=== PATIENT | male | born 1935 | race Caucasian/White ===

== ENCOUNTER 2018-12-05 10:04 | Emergency (ER) | payer MEDICARE ==
[~2018-12-05] VITALS: Ht 177.8 cm; Wt 77.1 kg
--- OUTSIDE RECORDS SUMMARY | 2018-12-05 10:06 | XMS REPORT ---
Author Author [facility] Address Unknown Phone Unavailable Care Team Providers Care [employer] Name Role Phone Unavailable Unavailable Payers Payer Name Policy Type Policy Number Effective Date Expiration Date Problems This patient has no known problems. Allergies, Adverse Reactions, Alerts Allergy Name Allergy Type Status Severity Reaction(s) Onset Date Inactive Date Treating Clinician Comments Penicillins DA Active U 2018-04-23 00:00:00 meperidine DA Active U 2018-04-23 00:00:00 Medications This patient has no known medications.
[2018-12-05 10:48] LABS: CLARITY,URINE CLEAR (CLEAR); COLOR,URINE AMBER (YELLOW); LEUKOCYTE ESTERASE ,URINE NEGATIVE (NEGATIVE); NITRITE,URINE NEGATIVE (NEGATIVE)
[2018-12-05 10:49] LABS: BILIRUBIN,URINE 1+ (NEGATIVE); KETONES,URINE TRACE (NEGATIVE); PROTEIN,URINE DIPSTICK 1+ (NEGATIVE); URINE UROBILINOGEN 1 mg/dL (0.2 - 1)
[2018-12-05 11:01] LABS: AMORPHOUS SEDIMENT,URINE RARE (FEW); BACTERIA,URINE FEW /HPF; EPITHELIAL CELLS,URINE FEW /LPF
[2018-12-05] MEDS ORDERED: CITRATE OF MAGNESIA 300ML BOTTLE PO ONE (11:30)
[2018-12-05] MEDS ORDERED: ONDANSETRON HCL 4 MG ORAL DISINTEGRATING TAB PO ONE (11:45)
--- NOTE | 2018-12-05 11:45 | Diagnostic Imaging Report ---
Exam: Abdominal film Clinical History: Bowel obstruction Comparison: None. DISCUSSION: No dilated loops of small bowel. Significant amount of retained stool in the right hemicolon. Ascending and transverse colon prominent in size with air. IMPRESSION: Retained stool within the colon. Prominent loops of air-filled colon without obstruction pattern. Signed by: Dr. Giovanny Zaman M.D. on 12/05/2018 11:42 AM
[2018-12-05] MEDS ORDERED: SOD PHOSPHATE/SOD BIPHOSPHATE ENEMA 132 ML BTL PR ONE (12:30)
== END 2018-12-05 14:10 | disposition home or self-care (01) ==
LOC: ER 10:04
DX: R10.32 Left lower quadrant pain (principal); K59.00 Constipation, unspecified
CPT/HCPCS: 74018; 81001; 99284; Q0162